=== PATIENT | male | born 1955 | race Caucasian/White ===

== ENCOUNTER 2017-08-08 07:00 | Inpatient (IN) | payer OTHER ==
[~2017-08-08] VITALS: Ht 182.9 cm; Wt 102.1 kg
[~2017-08-08 07:00] MED LIST: ADULT LOW DOSE81 MG PO; ATENOLOL25 MG PO; CITALOPRAM HBR20 MG PO; GARLIC1 EAC1 PO; GLUCOS-CHOND 51 EACH PO; LISINOPRIL-HCT1 EAC2 PO; LISINOPRIL20 MG PO; MS CONTIN15 MG PO; OXYCODONE HCL5 MG PO; PRILOSEC20 MG PO; TRAMADOL HCL50 MG PO; VITAMIN C500 M1 PO; XARELTO10 MG PO
[2017-08-21] MEDS ORDERED: PEPCID40 MG PO (09:09)
--- NOTE | 2017-08-29 17:37 | OR ---
[facility] [address], [place] [address] Signed DATE OF OPERATION: 08/28/2017 SURGEON: Luis Enrique Landrum MD PREOPERATIVE DIAGNOSIS: End-stage osteoarthritis, right knee. POSTOPERATIVE DIAGNOSIS: End-stage osteoarthritis, right knee. PROCEDURE: Right total knee arthroplasty. IMPLANTS: Attune PS size 8 femur, a size 7 tibial tray with an 8 mm PS poly and a 38 mm all-poly patellar button. SURGEON: Luis Enrique Landrum MD. ANESTHESIA: Was spinal with sedation. SPECIMENS AND COMPLICATIONS: There were no specimens or complications. TOURNIQUET TIME: 90 minutes. WHAT WAS DONE: The patient was taken to the operating room. After anesthesia was induced, airway secured, the patient was positioned, prepped, and draped in a routine sterile fashion. A straight anterior approach was made to the knee centered over the patella. Skin was divided sharply. Subcutaneous tissue was bluntly spread and a small medial flap was created. An anteromedial arthrotomy was performed and the patella was turned up on edge. We removed about 10 mm off the posterior aspect of the patella and placed drill holes for 38 mm all-poly patella. We then snap-fit the trial onto the patella and found we had reconstituted his patellar height of 24 mm. The patellar trial was then removed. The patella was slid into the lateral recess and the knee was flexed and placed in the knee blandon. Following the protocol, we used the [employer] navigation system to digitize the distal femur and we then resected the distal femur at 11 mm in neutral varus-valgus in about 3 degrees of flexion. The distal femoral wafers were then resected and removed. We then transitioned the navigation system to the proximal tibia and again following the protocol for the [place] navigation system, digitized the proximal tibia. We then resected the proximal tibia at about 5 mm off the medial side in neutral varus-valgus and about 3 degrees of posterior tilt in accordance with the Attune surgical protocol. We then removed the tibial wafer, remnants of the ACL, PCL, the medial and lateral meniscus. We then put the extension spacer block in and finally factually placed a 6 mm block in extension. We then flexed the knee over the femoral sizing jig on the distal femur. The Electronically Signed By: LUIS ENRIQUE LANDRUM MD 08/29/17 1737 PATIENT NAME: JAMES NIEVES OPERATIVE REPORT DATE OF : 59 PHYSICIAN: LUIS ENRIQUE LANDRUM MD REPORT #: [id number] REPORT IS CONFIDENTIAL AND NOT TO BE RELEASED WITHOUT AUTHORIZATION [facility] [address] [place] [id number] Signed femur sized to a size 8. The size 8, 4 in 1 cutting block was then pinned to the distal femur in about 3 degrees of external rotation. Anterior, posterior, and chamfer cuts were made and the bony debris was removed. We then placed the notch cutting block on the distal femur. We cut out the notch. We then put the size 8 femoral trial on the end of the femur and drilled out the lug holes. We then put a size 7 tibial tray, which we had measured from the resected tibial wafer with the 7 mm poly and reduced the knee. We still had excellent balance in flexion and extension and achieved full extension without any difficulty. We marked the rotational alignment. We then removed all the trials, prepared the tibia with a standard reamer and broach. Knee was copiously irrigated and meticulously dried. We then cemented the tibial tray, the femoral component and the patellar button into place. The knee was held in full extension with the [address] trial in [address]. Once the cement had cured, we removed the poly trial. We removed all the cementocytes and irrigated and dried the knee. We then re-trialed the knee if how we could actually place an 8 mm poly and still we get full extension with excellent balance. We, therefore, snap-fit the 8 mm poly onto the tibial tray. The knee was copiously irrigated one last time and wound closure was accomplished in a standard fashion. A sterile dressing was applied and the patient was awakened to the recovery room and arrived in stable condition. Counts were correct and antibiotic protocols were followed. Luis Enrique Landrum MD WFB/MODL /[id number] cc: Donell Squires MD Electronically Signed By: LUIS ENRIQUE LANDRUM MD 08/29/17 1737 PATIENT NAME: JAMES NIEVES OPERATIVE REPORT DATE OF : 59 PHYSICIAN: LUIS ENRIQUE LANDRUM MD REPORT #: [id number] REPORT IS CONFIDENTIAL AND NOT TO BE RELEASED WITHOUT AUTHORIZATION
[2017-08-30] MEDS ORDERED: LISINOPRIL-HCT1 EACH PO (11:25)
[2017-08-30] MEDS ORDERED: OXYCODONE HCL5 MG PO (12:08)
[2017-08-30] MEDS ORDERED: XARELTO10 MG PO (12:09)
[2017-08-30] MEDS ORDERED: DILAUDID4 MG PO (12:09)
== END 2017-08-30 13:10 | disposition home or self-care (01) | DRG 470 ==
LOC: DSVR 08-28 05:40 → MS 08-28 06:45
PROVIDERS: ADMIT Orthopaedic Surgery
PROC: 0SRC0J9 Replacement of Right Knee Joint with Synthetic Substitute, Cemented, Open Approach (ICD-10-PCS; principal; 2017-08-28 06:45)
DX: M17.11 Unilateral primary osteoarthritis, right knee (principal); I10 Essential (primary) hypertension
CPT/HCPCS: 01402; 36415; 73560; 80048; 85025; 94762; 97110; 97116; 97161; C1713; C1776; J0690; J1100; J1885; J2250; J2274; J2405; J2550; J2704; J3010; J7120

== ENCOUNTER 2018-03-22 08:45 | Day surgery (SDC) | payer OTHER ==
[~2018-03-22] VITALS: Ht 182.9 cm; Wt 97.5 kg
[~2018-03-22 08:45] MED LIST changes: +DILAUDID4 MG PO; +LISINOPRIL-HCT1 EACH PO; +PEPCID40 MG PO
[2018-03-22] MEDS ORDERED: OMEPRAZOLE20 MG PO (09:09)
--- NOTE | 2018-03-22 11:26 | NUR ---
03/22/18 1126 Kenzie Pierre HIGH FIBER DIET EDUCATIONAL PAMPHLET GIVEN TO PATIENT WITH DISCHARGE INSTRUCTIONS.
--- NOTE | 2018-03-22 12:26 | NUR ---
LE 1150: DISCHARGE INSTRUCTIONS ARE GIVEN IN THE PRESENCE OF PATIENT'S SPOUES. BOTH VERBALIZE UNDERSTANDING. PT IS DRESSING HIMSELF IN THE PRESENCE OF HIS SPOUSE AND IS TOLERATING THAT WELL. PT TRANSFERS HIMSELF TO AND PERSONAL VEHICLE AND IS DC HOME.
--- NOTE | 2018-03-22 14:04 | OR ---
[facility] [address], [place] [address] Signed DATE OF OPERATION: 03/22/2018 SURGEON: Skip Liu MD PREOPERATIVE DIAGNOSIS: Colon screening, last colonoscopy 2012. Hyperplastic polyp of rectum, asymptomatic. POSTOPERATIVE DIAGNOSES: 1. Sigmoid and left-sided diverticulosis. 2. Small polyp of rectum (excised). PROCEDURE: Total colonoscopy to cecum with cold morcellation polypectomy x1. ANESTHESIA: Intravenous sedation, fentanyl 100 mcg, Versed 8 mg. INDICATION: This 62-year-old white man is a patient of Dr. Squires, formerly Dr. Leslie and referred for surveillance colonoscopy. He underwent colonoscopy 5 years ago, by me where he was found to have submucosal lipomas masquerading as polyps as well as a hyperplastic polyp of the rectum. He is also noted to have diverticulosis. He is currently symptom free having no bleeding, diarrhea, or constipation problems. He has no family history of colon cancer that he is aware of. His father of esophageal carcinoma (small cell type). He is admitted at this time to undergo surveillance colonoscopy, understand the risks of bleeding, infection, perforation, and so on. FINDINGS: The prep was good. Complete colonoscopy was undertaken to the cecum without question. There were numerous diverticula of the sigmoid and left colon. All of them small, none showing signs of stricture or other issue. He has a small polyp of the rectum, which was excised with cold morcellation technique. The remaining colon and rectum were normal. DESCRIPTION OF PROCEDURE: The patient was brought to the endoscopy suite and placed in lateral decubitus position given intravenous sedation to the point of slurred speech and nystagmus. Digital rectal examination was normal. An Olympus video colonoscope was passed in the rectum and manipulated throughout the Electronically Signed By: SKIP LIU MD 03/22/18 1404 PATIENT NAME: JAMES NIEVES OPERATIVE REPORT DATE OF : 59 REPORT #: [id number] PHYSICIAN: SKIP LIU MD PCP: DONELL SQUIRES MD REPORT IS CONFIDENTIAL AND NOT TO BE RELEASED WITHOUT AUTHORIZATION [facility] [address], [place] [address] Signed colon ultimately intubating the cecum itself. The ileocecal valve and appendiceal orifice were normal. Photographs were taken. The scope was carefully withdrawn from that site. Examination throughout undertaken. Numerous diverticula were noted in the left colon and sigmoid, none of them wide-mouth and not causing stricture or other problem. In the lower part of the rectum, a small polyp was noted. It was probably hyperplastic. It was excised with cold morcellation technique without problem. Retroflexed view was normal. The scope was straightened, withdrawn, and removed, and the patient was taken to recovery room in good condition. CONCLUDING DIAGNOSES: Diminutive polyp of the rectum, diverticulosis of sigmoid and left colon. PLAN: Recommend high-fiber diet. Repeat colonoscopy in 10 years sooner if clinically indicated. He will return to the ongoing care of Dr. Squires. MD KRISTINA Martinez/VIELKA /[id number] cc: Donell Squires MD Copies: DONELL SQUIRES MD ~ Electronically Signed By: SKIP LIU MD 03/22/18 1404 PATIENT NAME: JAMES NIEVES OPERATIVE REPORT DATE OF : 59 REPORT #: [id number] PHYSICIAN: SKIP LIU MD PCP: DONELL SQUIRES MD REPORT IS CONFIDENTIAL AND NOT TO BE RELEASED WITHOUT AUTHORIZATION
== END 2018-03-22 11:55 | disposition home or self-care (01) ==
LOC: OPS 08:45 → DS 08:45 → OPS 09:00 → DS 09:00 → OPS 10:00
PROVIDERS: Surgery
PROC: 0DBP8ZZ Excision of Rectum, Via Natural or Artificial Opening Endoscopic (ICD-10-PCS; principal; 2018-03-22 10:00)
DX: Z12.11 Encounter for screening for malignant neoplasm of colon (principal); D12.8 Benign neoplasm of rectum; K57.30 Diverticulosis of large intestine without perforation or abscess without bleeding; I10 Essential (primary) hypertension; G47.30 Sleep apnea, unspecified; E66.3 Overweight; Z86.010 Personal history of colon polyps; Z98.890 Other specified postprocedural states; Z68.30 Body mass index [BMI] 30.0-30.9, adult
CPT/HCPCS: 99153; G0500; J0690; J2250; J3010; J7120

== ENCOUNTER 2018-11-01 06:31 | Emergency (ER) | payer OTHER ==
[~2018-11-01] VITALS: Ht 185.4 cm; Wt 97.5 kg
[~2018-11-01 06:31] MED LIST changes: +OMEPRAZOLE20 MG PO
[2018-11-01] MEDS ORDERED: TUMERSAID TABL1 EACH PO (06:46)
--- OUTSIDE RECORDS SUMMARY | 2018-11-01 09:02 | XMS ---
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 Care History Medical/Surgical 11/01/2018 [facility] - Patient is currently established with [facility]. If patient is seen in the ED during business hours. Please contact CHWs at [facility]. Care Recommendation: This patient has had 5 or more Emergency Department visits in the last 12 months.\T\nbsp; Patient requires education on the scope and purpose of the ED as an acute care provider not a Primary Care Provider and should not be utilized for chronic conditions.\T\nbsp; These are guidelines and the provider should exercise clinical judgment when providing care. E.D. VISIT COUNT (12 MO.) 1 [facility]. TOTAL 1 NOTE: Visits indicate total known visits. ED/UCC VISIT TRACKING (12 MO.) 11/01/2018 06:[address] [facility] [place] TYPE: Emergency COMPLAINT: - LEFT LEG PAIN/SWELLING NON INJURY INPATIENT VISIT TRACKING (12 MO.) No inpatient visits to display in this time frame [email or web address]
== END 2018-11-01 09:00 | disposition home or self-care (01) ==
LOC: ED 06:31
DX: M79.89 Other specified soft tissue disorders (principal); I10 Essential (primary) hypertension; Z79.899 Other long term (current) drug therapy; Z79.82 Long term (current) use of aspirin
CPT/HCPCS: 36415; 80053; 83735; 85025; 93971; 99284-25

== ENCOUNTER 2023-11-19 06:28 | Day surgery (SDC) | payer MEDICARE, BC ==
[~2023-11-19] VITALS: Ht 182.9 cm; Wt 104.5 kg
[~2023-11-19 06:28] MED LIST changes: +DULOXETINE HCL30 MG PO; +TOPROL XL25 MG PO; +TUMERSAID TABL1 EACH PO
[2023-11-19] MEDS ORDERED: MIDAZOLAM HCL 5 MG/5 ML VIAL ONE (06:38)
[2023-11-19] MEDS ORDERED: fentaNYL citrate 100 MCG/2 ML VIAL ONE (06:38)
[2023-11-19 06:44] VITALS: BP 122/68
[2023-11-19] MEDS ORDERED: LIDOCAINE HCL 4% 50 ML BTL TOP SCH (07:00)
[2023-11-19] MEDS ORDERED: LACTATED RINGER'S 1,000 ML IV SCH (07:00)
[2023-11-19] MEDS ORDERED: IBLOOD GLUCOSE TEST STRIP 1 EA TEST VI PRN (07:00)
[2023-11-19] MEDS ORDERED: LIDOCAINE HCL 1% 5 ML SDV INJ ONE (07:00)
[2023-11-19] MEDS ORDERED: CEFAZOLIN SODIUM 2 GM/20 ML SYR IV SCH (07:00)
[2023-11-19] MEDS ORDERED: MIDAZOLAM HCL 2 MG/2 ML VIAL ONE (07:47)
--- NOTE | 2023-11-19 08:12 | NUR ---
11/19/23 0812 Pilar Mullins 0803- PT ARRIVES TO PACU, LEFT LATERAL SEMI MCDNAIEL POSITION. PT AWAKE BUT DROWSY. DENIES PAIN AND NAUSEA. LR INFUSING TO RH IV, O2 AT 3L PER NC. ABD SOFT, NON DISTENDED. ALL MONITORS IN PLACE. 0810- PT RESTING INTERMITTENTLY. WAKES SELF UP OFF AND ON, CONVERSES WITH STAFF. O2 SATS REMAIN 100% ON 3L PER NC, MOVEDTO ROOM AIR AT THIS TIME. WILL CONTINUE TO MONITOR.
[2023-11-19 08:48] VITALS: BP 143/84
--- NOTE | 2023-11-20 14:40 | PATH ---
[facility] [address], [place] [address] Signed SPECIMEN(S): A DUODENUM BIOPSY SPECIMEN(S): B DUODENUM BULB BIOPSY SPECIMEN(S): C STOMACH BIOPSY SPECIMEN(S): D LOWER ESOPHAGUS BIOPSY SPECIMEN(S): E MIDDLE ESOPHAGUS BIOPSY SPECIMEN SOURCE: A. DUODENUM BIOPSY B. DUODENUM BULB BIOPSY C. STOMACH BIOPSY D. LOWER ESOPHAGUS BIOPSY E. MIDDLE ESOPHAGUS BIOPSY CLINICAL HISTORY: History 2018 reflux, mild duodenitis FINAL PATHOLOGIC DIAGNOSIS: A. Duodenum biopsy: - Benign duodenal mucosa, negative for specific diagnostic abnormality. B. Duodenal bulb biopsy: - Benign duodenal mucosa, negative for specific diagnostic abnormality. C. Stomach biopsy: - Benign gastric mucosa with focal slight chronic inflammation. - Negative for evidence of Helicobacter organisms on routine HE-stained sections. D. Lower esophagus biopsy: - Benign esophageal mucosa, negative for increased epithelial eosinophils. - Negative for glandular mucosa. E. Middle esophagus biopsy: - Benign esophageal mucosa, negative for increased epithelial eosinophils. JVR:joey MICROSCOPIC EXAMINATION: Histologic sections of all submitted blocks are examined by light microscopy. These findings, together with the gross examination, support the pathologic diagnosis. GROSS DESCRIPTION: A. The specimen, labeled and designated "Donell, duodenum biopsy," is received in formalin and consists of two toribio soft tissue fragments, ranging from 0.5-0.6 cm. Entirely submitted in (A1). PATIENT NAME: JAMES NIEVES [facility] DATE OF : 59 REPORT #: [id number] PHYSICIAN: ASHLEYAgolo JOHN PCP: DONELL MATA MD REPORT IS CONFIDENTIAL AND NOT TO BE RELEASED WITHOUT AUTHORIZATION [facility] [address], [place] [address] Signed B. The specimen, labeled and designated "Donell, duodenum bulb biopsy," is received in formalin and consists of two torbiio, soft tissue fragments, ranging from 0.3-0.4 cm. Entirely submitted in (B1). C. The specimen, labeled and designated "Donell, stomach biopsy," is received in formalin and consists of two toribio, soft tissue fragments, ranging from 0.2-0.8 cm. Entirely submitted in (C1). D. The specimen, labeled and designated "Donell, lower esophagus biopsy," is received in formalin and consists of two toribio, soft tissue fragments, ranging from 0.4-0.8 cm. Entirely submitted in (D1). E. The specimen, labeled and designated "Donell, middle esophagus biopsy," is received in formalin and consists of two toribio, soft tissue fragments, ranging from 0.6-0.7 cm. Entirely submitted in (E1). VB (under the direct supervision of a pathologist) The Gross Description was prepared using a voice recognition system. The report was reviewed for accuracy; however, sound-alike word errors, addition and/or deletions may occur. If there is any question about this report, please contact Client Services. PERFORMING LABORATORY: Technical component was performed by [facility] [employer] [facility], [address] [place] [id number] (CLIA# [id number]). Professional interpretation was performed by [facility], [address] [place] [id number] (CLIA#: [id number]). Diagnostician: Nino Cummings MD Pathologist Electronically Signed 11/20/2023 Copies: ~ PATIENT NAME: JAMES NIEVES PATHOLOGY DATE OF : 59 REPORT #: [id number] PHYSICIAN: TAT[facility]NA PATHOLOGY PCP: DONELL MATA MD REPORT IS CONFIDENTIAL AND NOT TO BE RELEASED WITHOUT AUTHORIZATION
--- NOTE | 2023-11-21 13:37 | OR ---
[facility] [address], [place] [address] Signed DATE OF OPERATION: 11/19/2023 SURGEON: Skip Liu MD PREOPERATIVE DIAGNOSES: 1. Family history of esophageal cancer (father, small cell type). 2. History of duodenitis and hypertrophied right arytenoid process. POSTOPERATIVE DIAGNOSES: 1. Normal-appearing esophagus; poor flap valve. 2. Mild duodenitis. PROCEDURE: Esophagogastroduodenoscopy with biopsy. ANESTHESIA: Intravenous sedation; fentanyl 100 mcg and Versed 5 mg. INDICATION: This 68-year-old white man is a patient of Dr. Riley Squires. He has a family history of esophageal cancer (unusually a small cell cancer). The patient has history of gastroesophageal reflux and duodenitis as confirmed on upper endoscopy in 2013. He has no current symptoms of dysphagia. He does take PPI medication omeprazole on a daily basis. He has had no symptoms of dysphagia or hematemesis but is here for upper endoscopy on the basis of family history and known history of reflux disease. He understands the risk of bleeding, infection, and perforation related to upper endoscopy and wished to proceed. FINDINGS: Esophagus was normal. There was a poor flap valve but no sign of Suero's epithelium, stricture, or neoplasm of the esophagus itself. Stomach was reasonably normal. There was some mild duodenitis at the bulbar portion of the duodenum. CLOtest was negative 20 minutes post procedure. DESCRIPTION OF PROCEDURE: The patient was brought to endoscopy suite and given topical lidocaine hypopharyngeal anesthesia and placed in the lateral decubitus position. He is given intravenous sedation to the point of slurred speech and nystagmus. A bite block was placed. An Olympus video upper endoscope was passed in the hypopharynx. The vocal cords themselves appeared normal. There was minimal hypertrophy of the right arytenoid process. The Electronically Signed By: SKIP LIU MD 11/21/23 1337 PATIENT NAME: JAMES NIEVES OPERATIVE REPORT DATE OF : 59 REPORT #: [id number] PHYSICIAN: SKIP LIU MD PCP: DONELL SQUIRES MD REPORT IS CONFIDENTIAL AND NOT TO BE RELEASED WITHOUT AUTHORIZATION [facility] [address] [place], [place] [address] Signed endoscope was easily passed in the esophagus. Throughout the length of the esophagus, there was no evidence of abnormality of any sort. The scope was passed to the stomach which was insufflated with air. Rugal folds were normal. The antrum was normal as was the pylorus. The scope was passed through into the duodenum. The 2nd and 3rd portions were normal. Biopsies were obtained to assess for celiac disease and somewhat redundant but soft mild mucosal nodular changes were noted of the duodenum, which were biopsied. The scope was withdrawn and retroflexed view undertaken showing a marginal flap valve. Proximal stomach had mild inflammation. Biopsies were obtained. CLOtest biopsies were also obtained including the antrum and proximal stomach. The scope was straightened and withdrawn and biopsies were then taken of the distal esophagus and mid esophagus. Throughout the length of the esophagus, there was no sign of abnormality. The scope was removed and the patient was taken to the recovery room in good condition. CONCLUDING DIAGNOSIS: No evidence of esophageal neoplasm. Poor flap valve and clinical symptoms of reflux off PPI. PLAN: Recommend upper endoscopy in 3 to 5 years, sooner if symptoms should develop. Would continue PPI medication owing to its safe medical profile as outlined well [employer] Abernathy winter issue 2020. MD KRISTINA Martinez/JUSTINL /[id number] cc: Donell Squires MD Copies: DONELL SQUIRES MD ~ Electronically Signed By: SKIP LIU MD 11/21/23 1337 PATIENT NAME: JAMES NIEVES OPERATIVE REPORT DATE OF : 59 REPORT #: [id number] PHYSICIAN: SKIP LIU MD PCP: DONELL SQUIRES MD REPORT IS CONFIDENTIAL AND NOT TO BE RELEASED WITHOUT AUTHORIZATION
== END 2023-11-19 08:55 | disposition home or self-care (01) ==
LOC: DS 06:28 → OPS 06:28 → DS 07:30 → OPS 08:55
PROVIDERS: ATTEND Surgery
PROC: 0DB68ZX Excision of Stomach, Via Natural or Artificial Opening Endoscopic, Diagnostic (ICD-10-PCS; 2023-11-19)
PROC: 0DB28ZX Excision of Middle Esophagus, Via Natural or Artificial Opening Endoscopic, Diagnostic (ICD-10-PCS; 2023-11-19)
PROC: 0DB38ZX Excision of Lower Esophagus, Via Natural or Artificial Opening Endoscopic, Diagnostic (ICD-10-PCS; 2023-11-19)
PROC: 0DB98ZX Excision of Duodenum, Via Natural or Artificial Opening Endoscopic, Diagnostic (ICD-10-PCS; principal; 2023-11-19 07:30)
DX: K29.80 Duodenitis without bleeding (principal); K21.9 Gastro-esophageal reflux disease without esophagitis; K64.5 Perianal venous thrombosis; I10 Essential (primary) hypertension; Z79.899 Other long term (current) drug therapy; Z80.0 Family history of malignant neoplasm of digestive organs
CPT/HCPCS: 88305; 99153; G0500; J0690; J2250; J3010